=== PATIENT | female | born 1960 | race Caucasian/White ===

== ENCOUNTER 2024-08-22 05:51 | Day surgery (SDC) | payer OTHER ==
[2024-08-17 16:15] LABS: PT Prothrombin Time 11.2 SECONDS (10-13.0); PTT, Activated Partial Thromb 31.7 SECONDS (27.2-37.4); Protime INR 0.98
--- NOTE | 2024-08-17 18:11 | RAD REPORT ---
EXAMINATION: TWO VIEW CHEST XR CLINICAL INDICATION: Female, 64 years old. [facility] pre op for day surgery. Hypertension TECHNIQUE: 2 view radiographs of the chest were performed. COMPARISON: No prior exam. FINDINGS: The lungs are well inflated and clear. No pneumothorax or sizable effusion. The heart is normal in si ze. Mediastinal contours are unremarkable. IMPRESSION: No acute or significant abnormalities.
[2024-08-22] MEDS: Ringers Lactate 1,000 ML IV ONE (06:30)
[2024-08-22] MEDS ORDERED: LIDOCAINE 1% MPF 5 ML VIAL ONE ×2 (06:43→07:19)
[2024-08-22] MEDS ORDERED: BUPIVACAINE 0.5% PF 10 ML VIAL ONE (06:44)
[2024-08-22] MEDS ORDERED: dexAMETHasone 10 MG/ML VIAL ONE (06:44)
[2024-08-22] MEDS ORDERED: EPINEPHRINE 1 MG/ML VIAL ONE (06:44)
[2024-08-22] MEDS ORDERED: FENTANYL CITR 100 MCG/2 ML ONE (06:44)
[2024-08-22] MEDS ORDERED: MIDAZOLAM HCL 2 MG/2 ML INJ ONE (06:44)
[2024-08-22] MEDS ORDERED: ONDANSETRON 4 MG/2 ML VIAL ONE (07:19)
[2024-08-22] MEDS ORDERED: propofoL 200 MG/20 ML VIAL IV ONE (07:19)
[2024-08-22] MEDS ORDERED: ROCURONIUM 50 MG/5 ML VIAL IV ONE (07:24)
[2024-08-22] MEDS: CEFAZOLIN SODIUM 2 GM/VIAL ONE (08:35)
[2024-08-22] MEDS: EPINEPHRINE 1 MG/ML VIAL ONE (09:00)
--- NOTE | 2024-08-22 09:33 | P.BOP ---
Preoperative diagnosis: Left rotator cuff tear, biceps tenosynovitis, impingement syndrome Postoperative diagnosis: Same, left shoulder SLAP tear Primary procedure: Left shoulder arthroscopic rotator cuff repair Secondary procedure: Left shoulder arthroscopic biceps tenotomy with SLAP d ebridement Other procedure(s): Left shoulder arthroscopic subacromial decompression Fan Installer: NONE,NONE Estimated blood loss: 5 cc Specimen: None Findings: See dictation Anesthesia: General Complications: None Implants: 1- 4.75 mm Arthrex swivel lock Fluids & blood products: Per anesthesia record Transferred to: Recovery Room Condition: Good
--- NOTE | 2024-08-22 09:38 | P.OP ---
Preoperative diagnosis: Left shoulder rotator cuff tear, biceps tenosynovitis, impingement syndrome Postoperative diagnosis: Same, left shoulder SLAP tear Primary procedure: Left shoulder arthroscopic rotator cuff repair Secondary procedure: Left shoulder arthroscopic biceps tenotomy with SLAP debridement Other procedure(s): Left shoulder arthroscopic subacromial decompression Anesthesia: General Estimated blood loss: 5 cc Specimen: None Findings: See dictation Operative Technique: Indication For Procedure: Dax is a 64-year-old female who presented to my clinic with signs, symptoms, and MRI findings consistent with a left shoulder full-thickness rotator cuff tear. I discussed with the patient risks and benefits associated with operative and nonoperative treatment. She expressed understanding and elected to proceed with operative treatment. Description Of Procedure: After informed consent was obtained, the patient was identified in the preoperative holding area. The left upper extremity was marked. The patient then was brought to the PACU where she underwent a left- sided interscalene block performed by Anesthesia. The patient was brought back to the operating room, transferred to the operative table in supine fashion, placed under general endotracheal anesthesia. She was then placed in a beach chair position with her extremities well padded. The left upper extremity was then prepped and draped in usual sterile fashion. A time-out was initiated. The correct patient and procedure were performed and identified. The patient did receive preoperative prophylactic antibiotics. Via the posterior portal position, a spinal needle was introduced in the glenohumeral joint and the shoulder was injected with 30 cc of normal saline to distend the capsule. A stab incision was made posteriorly and a posterior portal was created. Arthroscope was brought in via the posterior portal position and diagnostic arthroscopy was performed. Under direct visualization, an anterior portal and cannula were created. The patient was noted to have a type 2 SLAP tear, which was debrided using the arthroscopic shaver. There were no significant instability of the superior labrum or anterior posterior labrum, which were stable to probe. There was fraying and tenosynovitis of the bicipital tendon both intra-articular and extra-articular. A biceps tenotomy was performed using a meniscal biter. The biceps anchor was then debrided using the arthroscopic shaver. Subscapularis was found to be stable and intact to probe. There were no loose bodies within the axillary pouch. The patient was noted to have a full-thickness tear of the anterior aspect of the supraspinatus. A lateral portal was created and an arthroscopic shaver was then used to debride the greater tuberosity. The rotator cuff tear was noted to reduce to the greater tuberosity. Greater tuberosity was debrided using the arthroscopic shaver to create a bleeding bony bed. The undersurface of the rotator cuff tear was also debrided using the arthroscopic shaver to remove any unhealthy tissue. The arthroscope was then brought in the subacromial space. A subacromial bursectomy was performed using arthroscopic shaver. The patient was noted to have a full- thickness tear of the supraspinatus without retraction. Given the small tear, it was repaired in the Speed fix configuration using a fiber tape suture. Sutures were then passed through the rotator cuff tear in anterior-posterior fashion and the suture lines were then brought to a single Arthrex SwiveLock anchor onto the greater tuberosity. The remaining suture limbs were then cut. There was some significant fraying of a coracoacromial ligament as well as some undersurface spurring of the acromion and acromioplasty was performed using a radiofrequency ablator and an arthroscopic bur. Arthroscopic instruments were then removed without complication. Wounds were then irrigated thoroughly with normal saline. Subcutaneous tissue was approximated using a 2-0 Vicryl. Portals were approximated using a 3-0 Monocryl. Sterile dressings were applied. Shoulder immobilizer was placed. The patient was awakened and transferred to PACU in stable condition. Postoperative Plan: The patient will be nonweightbearing in a shoulder immobilizer for 6 weeks. We will follow the medium rotator cuff repair protocol 4 weeks postoperatively. Complications: None Implants: Arthrex 4.75 mm swivel lock Fluids & blood products: Per anesthesia record Transferred to: Recovery Room Condition: Good
[2024-08-22 10:04] VITALS: O2SAT 93
--- NOTE | 2024-08-22 10:18 | RAD REPORT ---
EXAM:Shoulder 1 View HISTORY: s/p L RCR, SAD, biceps tenotomy COMPARISON: None FINDINGS/IMPRESSION: Single frontal postoperative projection submitted. No abnormal bone or joint fin ding. A small amount of gas is present in soft tissues. There is moderate atelectasis left lung base.
[2024-08-22 11:33] VITALS: BP 142/65; TEMP 98.6
--- NOTE | 2024-08-22 12:51 | EKG ---
Test Date: 2024-08-17 Test Time: 15:52:12 Engineering Agent: MEASUREMENT RESULTS: Intervals: Rate: 83 ME: 150 QRSD: 82 QT: 344 QTc: 404 [place]: P: 59 ME: 150 QRS: 39 T: 35 INTERPRETIVE STATEMENTS: Normal sinus rhythm Normal ECG No previous ECG available for comparison Electronically Signed On 08-22-24 12:33:10 CDT by Arben Elder
== END 2024-08-22 11:10 | disposition home or self-care (01) ==
LOC: OR 05:51
PROVIDERS: ATTEND Orthopaedic Surgery Sports Medicine
PROC: 0LB24ZZ Excision of Left Shoulder Tendon, Percutaneous Endoscopic Approach (ICD-10-PCS; principal; 2024-08-22 08:00)
DX: M75.102 Unspecified rotator cuff tear or rupture of left shoulder, not specified as traumatic (principal); M75.22 Bicipital tendinitis, left shoulder; M75.42 Impingement syndrome of left shoulder
CPT/HCPCS: 93005; 36415; 85610; 85730; 71046; 73020; 29827; 29826; 29822; J2704; J2003 ×2; J2250; J3010; J1100; J0171 ×2; J2405; J7120